=== PATIENT | male | born 1935 | race Asian ===

== ENCOUNTER 2023-12-22 21:03 | Emergency (ER) | payer OTHER, MEDICARE ==
[~2023-12-22] VITALS: Ht 177.8 cm; Wt 68.0 kg
[2023-12-22 21:13] VITALS: BP_SYST 130; PULSE 89; RESP 16; TEMP 98.1; O2SAT 98
[2023-12-23] MEDS: DIPHTH,PERTUSS(ACELL),TET VAC 0.5 ML VIAL (Tdap) I.M. ONE (00:13)
[2023-12-23 00:20] VITALS: BP_SYST 121; PULSE 81; RESP 18; TEMP 97.9; O2SAT 97
== END 2023-12-23 00:15 | disposition home or self-care (01) ==
LOC: SED 21:03
DX: S00.81XA Abrasion of other part of head, initial encounter (principal); S80.212A Abrasion, left knee, initial encounter; Z79.899 Other long term (current) drug therapy; W22.8XXA Striking against or struck by other objects, initial encounter; Y93.89 Activity, other specified; Y92.89 Other specified places as the place of occurrence of the external cause; Y99.8 Other external cause status
CPT/HCPCS: 70450-TC; 72125-TC; 73564; 76376; 90715; 99285